=== PATIENT | female | born 1960 | race Hispanic/Latino ===

== ENCOUNTER → 2023-07-02 | Outpatient (CLI) | payer OTHER ==
[~2023-07-02] MED LIST: ACET-2079 PO; CALC667C10 PO; FAMO20TA8 PO; FOLI1TAB36 PO; LEVO25TA54 PO; LISI20TA24 PO; WARF3TAB29 PO
== END | disposition home or self-care (01) ==
LOC: RAH 08:15
PROVIDERS: ATTEND Internal Medicine
DX: Z12.31 Encounter for screening mammogram for malignant neoplasm of breast (principal)
CPT/HCPCS: 77067

== ENCOUNTER 2024-05-13 11:03 | Inpatient (IN) | payer OTHER ==
[~2024-05-13] VITALS: Ht 157.5 cm; Wt 81.9 kg
[2024-05-13 11:59] LABS: BILIRUBIN,URINE NEGATIVE (NEGATIVE); COLOR,URINE LIGHT-YELLOW (YELLOW); GLUCOSE, URINE (UA) NEGATIVE (NEGATIVE); KETONES,URINE NEGATIVE (NEGATIVE); LEUKOCYTE ESTERASE ,URINE 75 Leu/uL (NEGATIVE); NITRATE,URINE 1+ (NEGATIVE); OCCULT BLOOD,URINE SMALL (NEGATIVE); PH,URINE 5.5 (5.0-8.0); PROTEIN,URINE 20 mg/dL (NEGATIVE); UROBILINOGEN,URINE 0.2 mg/dL (0.2-1.0)
[2024-05-13 12:02] LABS: ADD UA MICROSCOPIC YES; APPEARANCE,URINE HAZY (CLEAR)
[2024-05-13 12:03] LABS: BASOPHILS # (AUTO) 0.01 K/uL (0.00-0.20); BASOPHILS % (AUTO) 0.2 % (0.0-5.0); EOSINOPHILS # (AUTO) 0.01 K/uL (0.00-0.70); EOSINOPHILS % (AUTO) 0.2 % (0.0-8.0); HEMATOCRIT 42.8 % (36-48); IMMATURE GRANULOCYTE ABSOLUTE 0.03 K/uL (0-1); LYMPHOCYTES # (AUTO) 0.2 K/uL (1.0-4.8); LYMPHOCYTES % (AUTO) 4.3 % (21.0-51.0); MEAN CORPUSCULAR HEMOGLOBIN 28.8 pg (27.0-33.0); MEAN CORPUSCULAR HGB CONC 32.2 g/dL (32.0-36.0); MEAN CORPUSCULAR VOLUME 89.2 fL (79-99); MONOCYTES # (AUTO) 0.3 K/uL (0.1-1.0); MONOCYTES % (AUTO) 6.4 % (3.0-13.0); NEUTROPHILS # (AUTO) 4.7 K/uL (1.8-7.7); NEUTROPHILS % (AUTO) 88.3 % (40.0-77.0); PLATELET COUNT (AUTO) 137 K/uL (130-400); RED CELL DISTRIBUTION WIDTH 13.3 % (11.0-15.5); WHITE BLOOD COUNT (AUTO) 5.3 K/uL (4.8-10.8)
[2024-05-13 12:04] LABS: BACTERIA,URINE MOD /HPF (None Seen); SQUAMOUS EPITHELIAL CELL,UR RARE /HPF (0-2); WBC,URINE 26-50 /HPF (0-1)
[2024-05-13 12:06] LABS: RAPID GROUP A STREP negative (NEGATIVE)
[2024-05-13 12:12] LABS: SARS-CoV-2, RNA, NAAT NEGATIVE SARS CoV-2 (NEGATIVE)
[2024-05-13 12:16] LABS: INFLUENZA TYPE A Negative For Type A (NEGATIVE); INFLUENZA TYPE B Negative For Type B (NEGATIVE)
[2024-05-13 12:53] LABS: BAND NEUTROPHILS % (MANUAL) 22 % (0-2); LYMPHOCYTES % (MANUAL) 7 % (22-44); MAN.DIFF COMMENT-IMPRESSION MANUAL DIFFERENTIAL; MONOCYTES % (MANUAL) 7 % (2-9); SEGMENTED NEUTROPHILS % 64 % (40-70); TOTAL CELLS COUNTED 100
[2024-05-13 12:54] LABS: PLATELET MORPHOLOGY COMMENT ADEQUATE; WBC MORPHOLOGY CONSISTENT W/DIFF
[2024-05-13 13:20] LABS: CREATININE 1.7 mg/dL (0.5-1.0)
[2024-05-13 13:24] LABS: BILIRUBIN,TOTAL 0.6 mg/dL (0.2-1.0); TOTAL PROTEIN, SERUM 6.5 g/dL (6.0-8.3)
[2024-05-13] MEDS: CEFTRIAXONE 1G VIAL IVPB ONE (14:48)
[2024-05-13 15:56] LABS: HEMOGLOBIN A1C 5.4 % (4.0-6.0)
[2024-05-13 16:13] LABS: THYROID STIMULATING HORMONE 2.18 uIU/mL (0.36-3.74)
[2024-05-13] MEDS: [UNRECOGNIZED DRUG - OTHER] IV SCH (16:40)
[2024-05-13] MEDS: MEROPENEM IV SCH (16:40)
[2024-05-13] MEDS: 0.9%NACL 1000ML 1,000 ML IV SCH (16:40)
[2024-05-13] MEDS: MEROPENEM 500 MG VIAL ONE (16:41)
[2024-05-13] MEDS: ACETAMINOPHEN 500 MG TABLET PO PRN (16:50)
[2024-05-13 18:07] VITALS: O2SAT 99
[2024-05-13] MEDS ORDERED: TACR1TAB PO (18:35)
[2024-05-13] MEDS ORDERED: ASPI-1443 PO (18:35)
[2024-05-13] MEDS ORDERED: ROSU5TAB43 PO (18:35)
[2024-05-13] MEDS ORDERED: FAMO-136 PO (18:35)
[2024-05-13] MEDS ORDERED: MYCO250C7 PO (18:35)
[2024-05-13] MEDS ORDERED: CARV6.25 PO (18:35)
[2024-05-13 20:00] VITALS: BP 105/71; PULSE 85; RESP 18
[2024-05-13] MEDS: DOXYCYCLINE 100MG+NS 250ML 250 ML IV SCH (20:34)
[2024-05-13] MEDS: FAMOTIDINE 20MG VIAL IV SCH (20:35)
[2024-05-13] MEDS: SODIUM CHLORIDE 3% FOR INHALATION 4 ML/AMP VIAL.NEB IH ONE (22:11)
[2024-05-13 22:47] VITALS: BP_SYST 140; BP_SYST 148; BP_DIAS 55; BP_DIAS 73; PULSE 56; PULSE 85; RESP 18; RESP 19
[2024-05-14] VITALS (10 sets, daily range): BP systolic 96–134; BP diastolic 49–73; PULSE 68–74; RESP 17–19; TEMP 97.9; O2SAT 94–99
[2024-05-14 04:45] LABS: BASOPHILS # (AUTO) 0.01 K/uL (0.00-0.20); BASOPHILS % (AUTO) 0.1 % (0.0-5.0); HEMATOCRIT 36.5 % (36-48); IMMATURE GRANULOCYTE ABSOLUTE 0.03 K/uL (0-1); LYMPHOCYTES # (AUTO) 0.5 K/uL (1.0-4.8); MEAN CORPUSCULAR HEMOGLOBIN 27.9 pg (27.0-33.0); MEAN CORPUSCULAR HGB CONC 31.8 g/dL (32.0-36.0); MEAN CORPUSCULAR VOLUME 87.7 fL (79-99); MONOCYTES # (AUTO) 0.7 K/uL (0.1-1.0); MONOCYTES % (AUTO) 9.9 % (3.0-13.0); NEUTROPHILS # (AUTO) 5.8 K/uL (1.8-7.7); NEUTROPHILS % (AUTO) 82.6 % (40.0-77.0); PLATELET COUNT (AUTO) 123 K/uL (130-400); RED BLOOD CELL COUNT(AUTO) 4.16 MIL/uL (4.00-5.50); RED CELL DISTRIBUTION WIDTH 13.4 % (11.0-15.5)
[2024-05-14 05:12] LABS: ALBUMIN 2.5 g/dL (3.5-5.0); BILIRUBIN,TOTAL 0.5 mg/dL (0.2-1.0); CREATININE 1.9 mg/dL (0.5-1.0); MAGNESIUM 1.4 mg/dL (1.80-2.40); PHOSPHORUS 3.7 mg/dL (2.5-4.9); POTASSIUM 3.9 mmol/L (3.5-5.1); TOTAL PROTEIN, SERUM 5.8 g/dL (6.0-8.3)
[2024-05-14] MEDS: CARVEDILOL 6.25 MG TABLET PO SCH (07:46)
[2024-05-14] MEDS: LEVOTHYROXINE 25 MCG TABLET PO SCH (07:47)
[2024-05-14] MEDS: Vitamin B Complex/Vit C/Folic Acid PO SCH (07:47)
[2024-05-14] MEDS: MYCOPHENOLATE MOFETIL 250 MG CAPSULE PO SCH (07:47)
[2024-05-14] MEDS ORDERED: COMPOUND IV MISC 1 EACH IVSOLN MISC PRN (08:00)
[2024-05-14] MEDS ORDERED: ASPIRIN 81 MG EC TAB PO SCH (09:00)
[2024-05-14] MEDS: TACROLIMUS 1 MG PO SCH (09:00)
[2024-05-14] MEDS: MEROPENEM 500 MG/100ML CRCL 10-25 IV SCH (09:19)
[2024-05-14] MEDS: MAGNESIUM 2GM PREMIX 50ML 50 ML IV PRN (14:40)
[2024-05-14] MEDS: IPRATROPIUM/ALBUTEROL SULFATE 3 ML SOLUTION IH SCH (18:09)
[2024-05-14] MEDS: ASPIRIN 81 MG EC TAB PO SCH (21:07)
[2024-05-14] MEDS: HEPARIN 5,000 UNIT VIAL SQ SCH (21:16)
[2024-05-15] VITALS (13 sets, daily range): BP systolic 127–148; BP diastolic 52–74; PULSE 65–106; RESP 18–20; O2SAT 98–100
[2024-05-15 05:46] LABS: BASOPHILS # (AUTO) 0.01 K/uL (0.00-0.20); BASOPHILS % (AUTO) 0.3 % (0.0-5.0); EOSINOPHILS # (AUTO) 0.01 K/uL (0.00-0.70); EOSINOPHILS % (AUTO) 0.3 % (0.0-8.0); HEMATOCRIT 36.1 % (36-48); IMMATURE GRANULOCYTE ABSOLUTE 0.03 K/uL (0-1); LYMPHOCYTES # (AUTO) 0.5 K/uL (1.0-4.8); LYMPHOCYTES % (AUTO) 13.3 % (21.0-51.0); MEAN CORPUSCULAR HEMOGLOBIN 27.9 pg (27.0-33.0); MEAN CORPUSCULAR HGB CONC 31.6 g/dL (32.0-36.0); MEAN CORPUSCULAR VOLUME 88.3 fL (79-99); MONOCYTES # (AUTO) 0.3 K/uL (0.1-1.0); MONOCYTES % (AUTO) 8.6 % (3.0-13.0); NEUTROPHILS # (AUTO) 2.8 K/uL (1.8-7.7); NEUTROPHILS % (AUTO) 76.7 % (40.0-77.0); PLATELET COUNT (AUTO) 117 K/uL (130-400); RED BLOOD CELL COUNT(AUTO) 4.09 MIL/uL (4.00-5.50); RED CELL DISTRIBUTION WIDTH 13.7 % (11.0-15.5); WHITE BLOOD COUNT (AUTO) 3.6 K/uL (4.8-10.8)
[2024-05-15 06:05] LABS: ALBUMIN 2.4 g/dL (3.5-5.0); BILIRUBIN,TOTAL 0.4 mg/dL (0.2-1.0); CREATININE 1.6 mg/dL (0.5-1.0); POTASSIUM 4.6 mmol/L (3.5-5.1); TOTAL PROTEIN, SERUM 5.7 g/dL (6.0-8.3)
[2024-05-15] MEDS: LEVOTHYROXINE 25 MCG TABLET PO SCH (09:05)
[2024-05-15] MEDS: CEFTRIAXONE 2GM VIAL IVPB SCH (13:49)
[2024-05-15] MEDS: CARVEDILOL 12.5 MG TABLET PO SCH (20:29)
[2024-05-16] VITALS (8 sets, daily range): BP systolic 125–175; BP diastolic 55–86; PULSE 60–69; RESP 18; O2SAT 99–100
[2024-05-16 05:00] LABS: BASOPHILS # (AUTO) 0.01 K/uL (0.00-0.20); BASOPHILS % (AUTO) 0.3 % (0.0-5.0); EOSINOPHILS # (AUTO) 0.05 K/uL (0.00-0.70); EOSINOPHILS % (AUTO) 1.7 % (0.0-8.0); HEMATOCRIT 33.3 % (36-48); IMMATURE GRANULOCYTE ABSOLUTE 0.02 K/uL (0-1); LYMPHOCYTES # (AUTO) 0.4 K/uL (1.0-4.8); LYMPHOCYTES % (AUTO) 14.7 % (21.0-51.0); MEAN CORPUSCULAR HEMOGLOBIN 28.5 pg (27.0-33.0); MEAN CORPUSCULAR HGB CONC 32.4 g/dL (32.0-36.0); MEAN CORPUSCULAR VOLUME 87.9 fL (79-99); MONOCYTES # (AUTO) 0.2 K/uL (0.1-1.0); MONOCYTES % (AUTO) 7.3 % (3.0-13.0); NEUTROPHILS # (AUTO) 2.2 K/uL (1.8-7.7); NEUTROPHILS % (AUTO) 75.3 % (40.0-77.0); PLATELET COUNT (AUTO) 137 K/uL (130-400); RED BLOOD CELL COUNT(AUTO) 3.79 MIL/uL (4.00-5.50); RED CELL DISTRIBUTION WIDTH 13.6 % (11.0-15.5); WHITE BLOOD COUNT (AUTO) 2.9 K/uL (4.8-10.8)
[2024-05-16 05:21] LABS: ALBUMIN 2.2 g/dL (3.5-5.0); BILIRUBIN,TOTAL 0.2 mg/dL (0.2-1.0); CREATININE 1.4 mg/dL (0.5-1.0); MAGNESIUM 1.4 mg/dL (1.80-2.40); POTASSIUM 4.1 mmol/L (3.5-5.1); TOTAL PROTEIN, SERUM 5.4 g/dL (6.0-8.3)
[2024-05-16 05:33] LABS: LYMPHOCYTES % (MANUAL) 10 % (22-44); MONOCYTES % (MANUAL) 6 % (2-9); REACTIVE LYMPHOCYTES 3 % (0-0); SEGMENTED NEUTROPHILS % 81 % (40-70); TOTAL CELLS COUNTED 100
[2024-05-16 05:34] LABS: MAN.DIFF COMMENT-IMPRESSION MANUAL DIFFERENTIAL
[2024-05-16 05:36] LABS: PLATELET MORPHOLOGY COMMENT ADEQUATE; WBC MORPHOLOGY REACTIVE LYMPHS 1+
[2024-05-16] MEDS ORDERED: IPRATROPIUM/ALBUTEROL SULFATE 3 ML SOLUTION IH PRN (12:00)
[2024-05-16] MEDS ORDERED: Folic Acid/Vitamin B Comp W-C PO (13:22)
== END 2024-05-16 15:15 | disposition home or self-care (01) | DRG 871 ==
LOC: EDH 11:03 → EDHIP 15:21 → 4AH 17:45
PROVIDERS: ADMIT Internal Medicine; ATTEND Internal Medicine
DX: A41.50 Gram-negative sepsis, unspecified (principal); J18.9 Pneumonia, unspecified organism; N18.6 End stage renal disease; N17.9 Acute kidney failure, unspecified; E87.1 Hypo-osmolality and hyponatremia; N13.6 Pyonephrosis; I12.0 Hypertensive chronic kidney disease with stage 5 chronic kidney disease or end stage renal disease; D84.821 Immunodeficiency due to drugs; Z20.822 Contact with and (suspected) exposure to COVID-19; J20.9 Acute bronchitis, unspecified; E78.5 Hyperlipidemia, unspecified; N20.0 Calculus of kidney; E03.9 Hypothyroidism, unspecified; B96.1 Klebsiella pneumoniae [K. pneumoniae] as the cause of diseases classified elsewhere; E11.22 Type 2 diabetes mellitus with diabetic chronic kidney disease; K57.30 Diverticulosis of large intestine without perforation or abscess without bleeding; R79.89 Other specified abnormal findings of blood chemistry; Z79.60 Long term (current) use of unspecified immunomodulators and immunosuppressants; Z99.2 Dependence on renal dialysis
CPT/HCPCS: 36415; 71045; 71250; 74176; 80053; 81001; 82550; 83036; 83605; 83735; 84100; 84145; 84443; 85025; 86140; 87040; 87071; 87086; 87186; 87205; 87635; 87641; 87804; 87880; 94640; 94664; 96365; G0378; J0696; J1644; J2185; J3475; J3490; J7517

== ENCOUNTER 2024-10-11 20:52 | Emergency (ER) | payer OTHER ==
[~2024-10-11] VITALS: Ht 157.5 cm; Wt 83.9 kg
[~2024-10-11 20:52] MED LIST changes: -ACET-2079 PO; +ASPI-1443 PO; -CALC667C10 PO; +CARV6.25 PO; +FAMO-136 PO; -FAMO20TA8 PO; -FOLI1TAB36 PO; +LEVO25TA9 PO; -LISI20TA24 PO; +MYCO250C7 PO; +ROSU5TAB51 PO; +TACR1TAB PO; -WARF3TAB29 PO
--- NOTE | 2024-10-11 22:04 | ERN ---
General Stated Complaint: LEAKING CONNECTION FOR ANTIBIOTIC INFUSION Time Seen by MD: 20:52 Source: patient History of Present Illness Initial Comments PATIENT IS A 64-YEAR-OLD FEMALE COMING IN TO BE EVALUATED FOR RIGHT MIDLINE LEAKAGE. PER PATIENT HE WAS RECEIVING IV ANTIBIOTICS STATES THAT SHE NOTICED IT GETTING WET SO HE DECIDED TO COME IN TO BE EVALUATED. Allergies: Coded Allergies: Iodinated Contrast Media (Unverified Allergy, Unknown, 05/13/24) iodine (Unverified Allergy, Unknown, 05/13/24) Home Meds Active Scripts Levothyroxine Sodium (Synthroid 25 Mcg Tab) 25 Mcg Tablet, 25 MCG PO SYN, #60 TAB Prov:QUINTIN YOON CLINICAL ATHLETIC INSTRUCTOR 10/05/24 Reported Medications Carvedilol (Carvedilol) 6.25 Mg Tablet, 12.5 MG PO BID 05/13/24 Famotidine (Pepcid) 20 Mg Tablet, 20 MG PO DAILY, TAB 05/13/24 Rosuvastatin Calcium (Rosuvastatin Calcium) 5 Mg Tablet, 5 MG PO HS, TAB 05/13/24 Aspirin (Aspirin EC) 81 Mg Tablet.dr, 81 MG PO DAILY, TAB 05/13/24 Mycophenolate Mofetil (Mycophenolate Mofetil) 250 Mg Capsule, 750 MG PO BID, CAP 05/13/24 Tacrolimus (Envarsus Xr) 1 Mg Tab.er.24h, 1 MG PO DAILY, TAB 05/13/24 Levothyroxine Sodium (Levothyroxine Sodium) 25 Mcg Tablet, 25 MCG PO ACBKFST, TAB 05/02/17 Past Medical History Past Medical History: Hypertension, Hypothyroid, Renal Disese, Renal Failure Medical History Other: KIDNEY TRANSPLANT, IMMUNOSUPPRESION Past Surgical History: Other Surgical History Other: KIDENY TRANSPLANT ROS Dictation CONSTITUTIONAL: NO CHILLS, NO FEVER, NO WEAKNESS, NO DIAPHORESIS, NO MALAISE. HEAD/FACE: NO SIGNS OF TRAUMA. EENT: NO EYE PAIN, NO BLURRED VISION, NO TEARING, NO DOUBLE VISION, NO EAR PAIN, NO EAR DISCHARGE, NO NOSE PAIN, NO NASAL CONGESTION, NO THROAT PAIN, NO THROAT SWELLING, NO MOUTH PAIN. RESPIRATORY: NO COUGH, NO ORTHOPNEA, NO SOB, NO STRIDOR, NO WHEEZING. CARDIOVASCULAR: NO CHEST PAIN, NO EDEMA, NO PALPITATIONS, NO SYNCOPE. GASTROINTESTINAL/ABDOMINAL: NO ABDOMINAL PAIN, NO CONSTIPATION, NO DIARRHEA, NO NAUSEA, NO VOMITING. GENITOURINARY: NO ABNORMAL DISCHARGE, NO DYSURIA, NO FREQUENT URINATION, NO HEMATURIA. NO COMPLAINTS OF PAIN IN THE GENITALS. MUSCULOSKELETAL: NO BACK PAIN, NO GOUT, NO JOINT PAIN, NO JOINT SWELLING, NO MUSCLE PAIN, NO MUSCLE STIFFNESS, NO NECK PAIN. INTEGUMENTARY: NO CHANGE IN COLOR, NO CHANGE IN HAIR/NAILS, NO DRYNESS, NO LESION, NO LUMPS, NO RASH. NEUROLOGICAL/PSYCH: NO ANXIETY, NOT DEPRESSED, NO EMOTIONAL PROBLEM, NO HEADACHE, NO NUMBNESS, NO PRE-EXISTING DEFICIT, NO HISTORY OF SEIZURES, NO TREMORS, NO WEAKNESS. HEMATOLOGIC/LYMPHATIC: NOT ANEMIC, NO HISTORY OF BLOOD CLOTS, NO APPARENT BLEEDING, NO BRUISING, GLANDS NOT SWOLLEN. ALL SYSTEMS NEGATIVE, EXCEPT NOTED. Physical Exam Physical Exam Dictation VITAL SIGNS: REVIEWED. GENERAL APPEARANCE: ALERT, ORIENTED X3, NO ACUTE DISTRESS, OBESE. HEAD AND FACE: NON-TRAUMATIC. EYES: PERRL, PINK CONJUNCTIVAS, EYELID NO TRAUMA, ANTERIOR CHAMBER CLEAR. EARS: PINNAS INTACT AND NO SIGNS OF TRAUMA OR ERYTHEMA. EAR CANALS CLEAR AND NO DISCHARGE. TMS NO ERYTHEMA. NOSE: NO DISCHARGE, NO BLEEDING. OROPHARYNX: MOUTH NORMAL, TEETH NO CARIES, TONGUE PINK. PHARYNX CLEAR, NO ERYTHEMA. TONSILS NO EXUDATES, NO ABSCESSES NOTED. MUCOUS MEMBRANE MOIST. NECK: SUPPLE, NON-TENDER, NO THYROMEGALY, NO MASSES, NO JVD, NO BRUITS. BREAST: DEFERRED. CHEST: NO TENDERNESS, NO CREPITUS, NO PARADOXICAL MOVEMENT, NO RETRACTIONS. LUNGS: CLEAR, WELL-VENTILATED, SYMMETRIC, NO RALES, NO WHEEZING, NO RHONCHI, NO STRIDOR, GOOD BREATH SOUNDS BILATERALLY. HEART: REGULAR RATE, REGULAR RHYTHM, NO MURMUR, NO GALLOPS. VASCULAR: NO PERIPHERAL EDEMA. ABDOMEN: SOFT, POSITIVE BOWEL SOUNDS, NONDISTENDED, NO GUARDING, NONTENDER, NO REBOUND, NO MASSES NO HEPATOMEGALY, NO SPLENOMEGALY, NO REYES'S SIGN, NO HERNIAS. RECTAL: DEFERRED. GENITAL: DEFERRED. NEUROLOGICAL: NORMAL SPEECH, GROSS MOTOR FUNCTION INTACT, GROSS SENSORY FUNCTION INTACT. MUSCULOSKELETAL: NECK NONTENDER, FULL RANGE OF MOTION, BACK NONTENDER, FULL RANGE OF MOTION. EXTREMITIES: NONTENDER, FULL RANGE OF MOTION. SKIN: COLOR PINK, DRY, NO TURGOR, NO RASH, NO LACERATIONS, NO ABRASIONS, NO CONTUSIONS. LYMPHATICS: DEFERRED. Results Laboratory and Microbiology Labs Reviewed?: Yes MDM MDM: DIFFERENTIAL DIAGNOSIS: PICC LINE ASSESSMENT, PATIENT IS A 64-YEAR-OLD FEMALE COMING IN TO EVALUATION OF THE HER PICC LINE. ON EVALUATION THERE IS SOME LEAKAGE OF THE PICC LINE ORDERS WERE PLACED FOR A.M. PICC LINE PLACEMENT OUTPATIENT BY IR. PATIENT DID RECEIVE HER IV ANTIBIOTICS TODAY SHE STATES SHE FINISHED WHOLE TREATMENT. ON PHYSICAL EXAM REMOVING THE DRESSING PICC LINE WAS KINKED SEEMED IF INCREASED PRESSURE WAS CAUSING LEAKAGE. PICC LINE ORDER WAS PLACED ORIGINALLY BY DR. Damon THE INFECTIOUS DISEASE BY DR. Damon WAS NOT ABLE TO BE REACHED. ONE TIME ORDER FOR OUTPATIENT PICC LINE WAS PLACED BY ME. ED Course Orders Procedure Category Date Status Time Place Picc Line CPOE 10/12/24 Transmitted 09:30 Prothrombin Time With LAB 10/12/24 Transmitted INR 00:19 Vital Signs Date Time Temp Pulse Resp B/P (MAP) Pulse Ox O2 Delivery O2 Flow Rate FiO2 10/11/24 23:52 97.9 69 16 142/68 100 Room Air* 0 21 10/11/24 22:13 98.1 79 20 137/99 96 Room Air DX & DISP Disposition: Discharge Departure Impression: Primary Impression: PICC line infiltration Condition: Stable Additional Instructions: FOLLOW-UP WITH PRIMARY CARE PROVIDER IN 1 TO 2 DAYS. TAKE MEDICATIONS DIRECTED HERE IN THE EMERGENCY ROOM. OKAY TO CONTINUE HOME MEDICATIONS UNLESS OTHERWISE DISCUSSED DURING YOUR VISIT IN THE EMERGENCY ROOM TODAY. RETURN TO YOUR NEAREST EMERGENCY ROOM IF SYMPTOMS WORSEN OR IF THERE IS NO IMPROVEMENT. CALL 911 IF YOU NEED IMMEDIATE ASSISTANCE. TAKE TYLENOL [id number] NEEDED AND IF NO CONTRAINDICATIONS ARE PRESENT. INCREASE ORAL HYDRATION. A WOUND CULTURE OR URINE CULTURE WAS ORDERED HERE IN THE EMERGENCY ROOM DEPARTMENT PLEASE FOLLOW-UP WITH PRIMARY CARE PROVIDER AND ADVISE THEM TO GET REPEAT PORTS FROM OUR FACILITY. IF YOU HAD ANY SILVANO WRAP/SPLINTS THAT WERE APPLIED HERE, PLEASE DO NOT REMOVE THEM UNTIL YOU SEE YOUR PRIMARY CARE OR SPECIALTY. REFERRALS: Referrals: ANNALISA MIRANDA MD (PCP) Time of Disposition: 00:22 GERTRUDIS PENDLETON MD Oct 11, 2024 22:04
[2024-10-11 23:52] VITALS: TEMP 97.8
[2024-10-12 00:43] VITALS: BP 138/66; PULSE 65; RESP 18; O2SAT 99
[2024-10-12 01:04] LABS: INR 0.99 (0.85-1.15); PROTHROMBIN TIME 11.1 SEC (9.6-11.6)
[2024-10-17] MEDS ORDERED: APIX5TAB PO (09:26)
== END 2024-10-12 00:50 | disposition home or self-care (01) ==
LOC: EDH 20:52
DX: T82.898A Other specified complication of vascular prosthetic devices, implants and grafts, initial encounter (principal); I10 Essential (primary) hypertension; E03.9 Hypothyroidism, unspecified; Z79.621 Long term (current) use of calcineurin inhibitor; Z79.624 Long term (current) use of inhibitors of nucleotide synthesis; Z79.82 Long term (current) use of aspirin; Z79.899 Other long term (current) drug therapy; Z88.8 Allergy status to other drugs, medicaments and biological substances; Z91.041 Radiographic dye allergy status; Z94.0 Kidney transplant status; Y82.8 Other medical devices associated with adverse incidents; Y92.89 Other specified places as the place of occurrence of the external cause
CPT/HCPCS: 36415; 36569; 85610; 99285

== ENCOUNTER 2024-10-12 09:51 | Day surgery (SDC) | payer OTHER ==
[2024-10-12 10:20] VITALS: BP 141/83; PULSE 66; RESP 17; TEMP 97.3
--- NOTE | 2024-10-12 10:39 | NUR ---
PT IS HERE AN OUTPATIENT FOR PICC LINE RE-INSERTION. VISITED ER LAT NIGHT DUE TO IV ANTIBIOTICS LEAKING FROM PICC LINE SITE TO RIGHT UPPER ARM. PT IS AMBULATORY, PT IS AWAKE, ALERT AND ORIENTED X 4. PT HAS SMALL BRUISING TO RIGHT UPPER ARM ABOUT A DIME SIZE. PT HAS HEMODIALYSIS ACCESS SITE TO LEFT UPPER ARM. PT DENIES ANY PAIN.
[2024-10-12 11:39] LABS: INR 1.03 (0.85-1.15); PROTHROMBIN TIME 11.5 SEC (9.6-11.6)
[2024-10-12 11:40] LABS: PARTIAL THROMBOPLASTIN TIME 29.6 SEC (26.3-35.5)
--- NOTE | 2024-10-12 13:38 | HMCIMG ---
CHEST 1VW REASON: PICC LINE PLACEMENT COMPARISON: 10/01/2024 FINDINGS: There is a right-sided PICC line. Tip is in the subclavian vein near the junction with the internal jugular vein. There is a loop of PICC line extending superiorly in to a venous branch, probably the thyrocervical trunk. Vascular stent is again noted in the left subclavian vein. Lungs are clear. Heart mediastinum and bony thorax appear unremarkable. IMPRESSION: 1. Right-sided PICC line with tip in the superior vena cava, there is a loop extending superiorly into the thyrocervical trunk branches.
[2024-10-12 13:44] VITALS: BP 153/84; PULSE 71; RESP 18; TEMP 97.9
[2024-10-17] MEDS ORDERED: APIX5TAB PO (09:26)
== END 2024-10-12 13:52 | disposition home or self-care (01) ==
LOC: DAH 09:51
PROVIDERS: ATTEND Emergency Medicine
DX: N10 Acute pyelonephritis (principal); I12.9 Hypertensive chronic kidney disease with stage 1 through stage 4 chronic kidney disease, or unspecified chronic kidney disease; N18.9 Chronic kidney disease, unspecified; E78.5 Hyperlipidemia, unspecified; E03.9 Hypothyroidism, unspecified; R65.20 Severe sepsis without septic shock; A41.9 Sepsis, unspecified organism; E66.9 Obesity, unspecified; Z94.0 Kidney transplant status; E87.1 Hypo-osmolality and hyponatremia; Z88.5 Allergy status to narcotic agent; Z88.8 Allergy status to other drugs, medicaments and biological substances; Z92.29 Personal history of other drug therapy; Z79.01 Long term (current) use of anticoagulants; Z79.899 Other long term (current) drug therapy
CPT/HCPCS: 36573; 85610; 85730; 36415; 71045; C1750; C1894; 36569; 76937

== ENCOUNTER 2024-11-19 13:54 | Emergency (ER) | payer OTHER ==
[~2024-11-19] VITALS: Ht 157.5 cm; Wt 80.7 kg
[~2024-11-19 13:54] MED LIST changes: +APIX5TAB PO
--- NOTE | 2024-11-19 14:20 | ERN ---
ED Note History of Present Illness Stated Complaint: FEVER Chief Complaint: Fever Time Seen by MD: 14:05 Time Seen by Midlevel: 14:07 Dictation: Ms Sherman is a 64 year old female history of hypertension, obesity, and renal transplant/immunosuppression who presented to the emergency department this afternoon for evaluation of fever. She reports 2-3 days of fever, chills, body aches, and sore throat. She denies having chest pain, palpitations, edema, shortness of breath, cough, abdominal pain, nausea, vomiting, diarrhea, dysuria, headache, or dizziness. She had been receiving IV antibiotics via PICC line to the right upper arm. Following removal she developed a DVT. She has been receiving Eliquis 5 mg twice daily. Allergies: Coded Allergies: Iodinated Contrast Media (Unverified Allergy, Unknown, 05/13/24) iodine (Unverified Allergy, Unknown, 05/13/24) Home Meds Active Scripts Apixaban (Eliquis) 5 Mg Tablet, 5 MG PO BID, #60 TAB 0 Refills Prov:APRIL DRUMMOND MD 10/17/24 Levothyroxine Sodium (Synthroid 25 Mcg Tab) 25 Mcg Tablet, 25 MCG PO SYN, #60 TAB Prov:QUINTIN YOON APRN 10/05/24 Reported Medications Carvedilol (Carvedilol) 6.25 Mg Tablet, 12.5 MG PO BID 05/13/24 Famotidine (Pepcid) 20 Mg Tablet, 20 MG PO DAILY, TAB 05/13/24 Rosuvastatin Calcium (Rosuvastatin Calcium) 5 Mg Tablet, 5 MG PO HS, TAB 05/13/24 Aspirin (Aspirin EC) 81 Mg Tablet.dr, 81 MG PO HS, TAB 05/13/24 Mycophenolate Mofetil (Mycophenolate Mofetil) 250 Mg Capsule, 750 MG PO BID, CAP 05/13/24 Tacrolimus (Envarsus Xr) 1 Mg Tab.er.24h, 2 MG PO DAILY, TAB 05/13/24 Levothyroxine Sodium (Levothyroxine Sodium) 25 Mcg Tablet, 25 MCG PO ACBKFST, TAB 05/02/17 Past Medical History Past Medical History: Hypertension Additional Past Medical Hx: KIDNEY TRANSPLANT, IMMUNOSUPPRESION Surgical History: Other, Surgical History Other: KIDNEY TRANSPLANT PSYCH History: no pertinent psych hx History: Not Applicable RN Note Reviewed/Agreed w/PFSH: Yes Review of System Dictation REVIEW OF SYSTEMS: CONSTITUTIONAL: Patient denies sweats and weight changes. Reports fever, chills, fatigue, general weakness EYES: Patient denies any visual symptoms. EARS, NOSE, AND THROAT: No difficulties with hearing. No symptoms of rhinitis. Reports sore throat CARDIOVASCULAR: Patient denies chest pains, palpitations, orthopnea and paroxysmal nocturnal dyspnea. RESPIRATORY: No dyspnea on exertion, no wheezing or cough. GI: No nausea, vomiting, diarrhea, constipation, abdominal pain, hematochezia or melena. : No urinary hesitancy or dribbling. No nocturia or urinary frequency. No abnormal urethral discharge. MUSCULOSKELETAL: Reports body aches NEUROLOGIC: No chronic headaches, no seizures. Patient denies numbness, tingling or weakness. PSYCHIATRIC: Patient denies problems with mood disturbance. No problems with anxiety. ENDOCRINE: No excessive urination or excessive thirst. DERMATOLOGIC: Patient denies any rashes or skin changes. Initial Vital Sign VS Vital Signs Date Time Temp Pulse Resp B/P (MAP) Pulse Ox O2 Delivery O2 Flow Rate FiO2 11/19/24 13:58 101.3 86 20 196/108 98 Room Air 0 11/19/24 14:15 21 Physical Exam Dictation Vital signs: Reviewed.Temp 101.3 Constitutional: No acute distress. Non-toxic appearing. Head/Face: Normocephalic, atraumatic. Eyes: Periorbital areas with no swelling, redness, or edema. Lids and lashes are normal. Conjunctival injection is absent. Sclera anicteric. Pupils equal, round, reactive to light. ENT: Pinnas intact and no signs of trauma or erythema. Ear canals clear and no discharge. TMs no erythema. No nasal discharge or bleeding noted.Throat with erythema; no exudate noted. . Uvula midline. Mucous membranes dry Neck: Trachea midline, no masses palpated, and no cervical lymphadenopathy. No swelling. Supple, full range of motion. Chest/Axilla: No tenderness, no crepitus, no paradoxical movement, no retractions. Cardiovascular: Regular rate, regular rhythm, no murmur, no gallops. Symmetric pulses. No peripheral edema. Hypertensive; 196/108. Has Fistula LUE with + thrill/bruit; no using. Respiratory: Respirations even and unlabored. Lung sounds clear; no wheezes, rales or rhonchi. Room air spo2 98% Gastrointestinal: Obese. . No distention is appreciated. Bowel sounds are normal. No mass or organomegaly . There is no tenderness. No rebound. No rigidity. No voluntary or involuntary guarding. No Cervantes's sign. : Negative CVA tenderness bilaterally. Has suprapubic pain + Neurological: Normal speech, gross motor function intact, gross sensory f unction intact. No focal weakness/Paresthesia. Musculoskeletal/Extremities: All extremities have full range of motion, no pain or tenderness on palpation. Symmetric pulses. RUQ with no swelling or tenderness. Integumentary: Intact. Skin is normal color, warm and dry. Cap refill less than 3 seconds. Results (Laboratory/Radiology) Laboratory/Radiology Laboratory Tests Test 11/19/24 14:04 11/19/24 14:34 11/19/24 15:43 Influenza Type A Antigen Negative For Type A Influenza Type B Antigen Negative For Type B SARS-CoV-2, RNA, NAAT NEGATIVE SARS CoV-2 Group A Streptococcus Rapid negative (NEGATIVE) White Blood Count 7.3 K/uL (4.8-10.8) Red Blood Count 4.31 MIL/uL (4.00-5.50) Hemoglobin 12.3 g/dL (12.0-16.0) Hematocrit 38.2 % (36-48) Mean Corpuscular Volume 88.6 fL (79-99) Mean Corpuscular Hemoglobin 28.5 pg (27.0-33.0) Mean Corpuscular Hemoglobin Concent 32.2 g/dL (32.0-36.0) Red Cell Distribution Width 13.7 % (11.0-15.5) Platelet Count 154 K/uL (130-400) Mean Platelet Volume 9.8 fL (7.5-10.5) Immature Granulocyte % (Auto) 0.4 % (0-1) Neutrophils (%) (Auto) 82.9 % (40.0-77.0) H Lymphocytes (%) (Auto) 7.9 % (21.0-51.0) L Monocytes (%) (Auto) 8.4 % (3.0-13.0) Eosinophils (%) (Auto) 0.3 % (0.0-8.0) Basophils (%) (Auto) 0.1 % (0.0-5.0) Neutrophils # (Auto) 6.0 K/uL (1.8-7.7) Lymphocytes # (Auto) 0.6 K/uL (1.0-4.8) L Monocytes # (Auto) 0.6 K/uL (0.1-1.0) Eosinophils # (Auto) 0.02 K/uL (0.00-0.70) Basophils # (Auto) 0.01 K/uL (0.00-0.20) Absolute Immature Granulocyte (auto 0.03 K/uL (0-1) Nucleated Red Blood Cells 0.0 % (0.0-0.19) White Cell Morphology Comment See comments Sodium Level 136 mmol/L (136-145) Potassium Level 4.0 mmol/L (3.5-5.1) Chloride Level 103 mmol/L (101-111) Carbon Dioxide Level 25 mmol/L (21-32) Blood Urea Nitrogen 20 mg/dL (7-18) H Creatinine 1.6 mg/dL (0.5-1.0) H Glomerular Filtration Rate Calc 36 mL/min (>90) Random Glucose 103 mg/dL (70-105) Total Calcium 9.0 mg/dL (8.5-10.1) Urine Color LIGHT-YELLOW (YELLOW) Urine Appearance CLEAR (CLEAR) Urine pH 5.5 (5.0-8.0) Urine Specific [place] 1.003 (1.001-1.031) Urine Protein NEGATIVE mg/dL (NEGATIVE) Urine Glucose (UA) NEGATIVE mg/dL (NEGATIVE) Urine Ketones NEGATIVE mg/dL (NEGATIVE) Urine Occult Blood SMALL (NEGATIVE) H Urine Nitrate NEGATIVE (NEGATIVE) Urine Bilirubin NEGATIVE mg/dL (NEGATIVE) Urine Urobilinogen 0.2 mg/dL (0.2-1.0) Urine Leukocyte Esterase 75 Royce/uL (NEGATIVE) H Urine RBC 0-1 /HPF (0-1) Urine WBC 11-25 /HPF (0-1) H Urine WBC Clumps (Auto) RARE /HPF (0-1) Urine Squamous Epithelial Cells RARE /HPF (0-2) Urine Non-Squamous Epithelial Cells <1 /HPF (0-2) Urine Bacteria MOD /HPF (None Seen) Labs Reviewed?: Yes ED Course ED Course Orders Procedure Category Date Status Time Covid Rna Naat LAB 11/19/24 Complete 14:02 Influenza Type A & B, LAB 11/19/24 Complete Rapid 14:02 Rapid (Group A Strep) LAB 11/19/24 Complete 14:02 Urinalysis Profile LAB 11/19/24 Complete 14:08 Acetaminophen 500mg PHA 11/19/24 Complete Tab (Tylenol 500mg T 14:30 Cbc With Differential LAB 11/19/24 Complete 14:10 Basic Metabolic Panel LAB 11/19/24 Complete 14:10 Blood Cult MAGDA 11/19/24 In Process 14:10 Culture Urine MAGDA 11/19/24 In Process 15:53 Current Medications Medications (Trade) Dose Ordered Sig/José Route PRN Reason Start Time Stop Time Status Last Admin Dose Admin Acetaminophen (TYLenol 500MG TAB) 1,000 mg ONCE ONCE PO 11/19/24 14:30 11/19/24 14:31 DC 11/19/24 14:21 Vital Signs Date Time Temp Pulse Resp B/P (MAP) Pulse Ox O2 Delivery O2 Flow Rate FiO2 11/19/24 16:18 98.8 76 16 154/76 98 Room Air* 0 21 11/19/24 15:15 100.4 83 16 163/83 98 Room Air* 0 21 11/19/24 14:21 101.3 11/19/24 14:15 101.3 80 16 176/76 98 Room Air* 0 11/19/24 13:58 101.3 86 20 196/108 98 Room Air 0 Upon arrival to the emergency department noted fever 101.3 and elevated blood pressure of 196/108. She received dose Tylenol 1 g and is now afebrile. Laboratory findings as noted below. There is no elevation of white blood cell count. H&H are stable. BUN and creatinine per baseline at 20/1.6. Influenza a/B, COVID, and strep are all negative. UA is positive for blood, leukocyte esterase, and you WBCs 11-25. Blood pressure is much improved 154/76. She received dose Rocephin 1 g IM. Discussed findings with patient and she will be discharged to home with oral antibiotics and will follow up with her primary ca re physician. Medical Decision Making MDM MDM: Differential diagnosis: Influenza, COVID, strep, UTI Rationale: Tests considered and ordered secondary to shared decision making include: Lab Previous outside records reviewed: Old ER visits. Risk of complication and/or morbidity or mortality of patient management: None Medications-Per medication reconciliation Need for hospitalization: Patient does not meet criteria for hospitalization. Need for emergency major/minor surgery: No There are no social concerns with this patient. Prescription drug management: Cephalexin Prescriptions will include symptomatic care Patient's prior external medical records from other ER visits were reviewed by me as indicated. Prior testing and results from previous visits were reviewed. Prior tests were taken into account with medical decision making and resource utilization, independent historian/historians were used to obtain complete medical history. I independently interpreted the test that were performed, results were reviewed by me and considered findings on radiology if ordered. Medical management and examination interpretation discussions were had by me with other qualified healthcare professionals as indicated for the patient's care. DX & DISP Disposition: Discharge Departure Impression: Primary Impression: UTI (urinary tract infection) Condition: Stable Scripts Cephalexin (Cephalexin) 500 Mg Tablet 1 TAB PO BID for 10 Days, #20 TAB 0 Refills Prov: PHIL GRUBER NP 11/19/24 Additional Instructions: Rest. Drink plenty of fluids. take Tylenol or ibuprofen every 6 hours as need ed for fever/discomfort. Continue antibiotics with cephalexin 500 mg twice daily for 10 days. Continue all other home medications. You will need to follow up with your primary care physician for recheck in 3-5 days. Return to the emergency department for any worsening of symptoms or concerns. Referrals: ANNALISA MIRANDA MD (PCP) Time of Disposition: 18:16 PHIL GRUBER NP Nov 19, 2024 14:20
[2024-11-19] MEDS: acetaMINOPHEN 500 MG TABLET PO ONE (14:21)
[2024-11-19 14:24] LABS: RAPID GROUP A STREP negative (NEGATIVE)
[2024-11-19 14:28] LABS: SARS-CoV-2, RNA, NAAT NEGATIVE SARS CoV-2 (NEGATIVE)
[2024-11-19 14:36] LABS: INFLUENZA TYPE A Negative For Type A (NEGATIVE); INFLUENZA TYPE B Negative For Type B (NEGATIVE)
[2024-11-19 14:46] LABS: BASOPHILS # (AUTO) 0.01 K/uL (0.00-0.20); BASOPHILS % (AUTO) 0.1 % (0.0-5.0); EOSINOPHILS # (AUTO) 0.02 K/uL (0.00-0.70); EOSINOPHILS % (AUTO) 0.3 % (0.0-8.0); HEMATOCRIT 38.2 % (36-48); IMMATURE GRANULOCYTE ABSOLUTE 0.03 K/uL (0-1); LYMPHOCYTES # (AUTO) 0.6 K/uL (1.0-4.8); LYMPHOCYTES % (AUTO) 7.9 % (21.0-51.0); MEAN CORPUSCULAR HEMOGLOBIN 28.5 pg (27.0-33.0); MEAN CORPUSCULAR HGB CONC 32.2 g/dL (32.0-36.0); MEAN CORPUSCULAR VOLUME 88.6 fL (79-99); MONOCYTES # (AUTO) 0.6 K/uL (0.1-1.0); MONOCYTES % (AUTO) 8.4 % (3.0-13.0); NEUTROPHILS % (AUTO) 82.9 % (40.0-77.0); PLATELET COUNT (AUTO) 154 K/uL (130-400); RED BLOOD CELL COUNT(AUTO) 4.31 MIL/uL (4.00-5.50); RED CELL DISTRIBUTION WIDTH 13.7 % (11.0-15.5); WHITE BLOOD COUNT (AUTO) 7.3 K/uL (4.8-10.8)
[2024-11-19 14:54] LABS: CREATININE 1.6 mg/dL (0.5-1.0)
[2024-11-19 15:27] VITALS: TEMP 100.4
[2024-11-19 15:51] LABS: APPEARANCE,URINE CLEAR (CLEAR); BILIRUBIN,URINE NEGATIVE (NEGATIVE); COLOR,URINE LIGHT-YELLOW (YELLOW); GLUCOSE, URINE (UA) NEGATIVE (NEGATIVE); KETONES,URINE NEGATIVE (NEGATIVE); LEUKOCYTE ESTERASE ,URINE 75 Leu/uL (NEGATIVE); NITRATE,URINE NEGATIVE (NEGATIVE); OCCULT BLOOD,URINE SMALL (NEGATIVE); PH,URINE 5.5 (5.0-8.0); PROTEIN,URINE NEGATIVE (NEGATIVE); UROBILINOGEN,URINE 0.2 mg/dL (0.2-1.0)
[2024-11-19 15:52] LABS: ADD UA MICROSCOPIC YES
[2024-11-19 15:55] LABS: BACTERIA,URINE MOD /HPF (None Seen); NON-SQUAMOUS EPITHELIAL CELL <1 /HPF (0-2); RBC,URINE 0-1 /HPF (0-1); SQUAMOUS EPITHELIAL CELL,UR RARE /HPF (0-2); WBC CLUMP RARE /HPF (0-1)
[2024-11-19] MEDS ORDERED: CEPH500T PO (18:15)
[2024-11-19] MEDS: cefTRIAXone 1G VIAL IM ONE (18:25)
[2024-11-19 18:27] VITALS: BP 158/60; PULSE 80; RESP 16; TEMP 98.3; O2SAT 98
== END 2024-11-19 18:38 | disposition home or self-care (01) ==
LOC: EDH 13:54
DX: N39.0 Urinary tract infection, site not specified (principal); I10 Essential (primary) hypertension; Z79.01 Long term (current) use of anticoagulants; Z79.621 Long term (current) use of calcineurin inhibitor; Z79.624 Long term (current) use of inhibitors of nucleotide synthesis; Z79.82 Long term (current) use of aspirin; Z79.899 Other long term (current) drug therapy; Z88.8 Allergy status to other drugs, medicaments and biological substances; Z91.041 Radiographic dye allergy status; Z94.0 Kidney transplant status; Z20.822 Contact with and (suspected) exposure to COVID-19
CPT/HCPCS: 99285; 87635; 80048; 85025; 87040 ×2; 87086 ×2; 87186; 87880; 87804 ×2; 81001; 36415; 96372; J0696